=== PATIENT | female | born 1970 | race Hispanic/Latino ===

== ENCOUNTER → 2024-02-25 06:25 | Outpatient (REF) | payer BC, SELFPAY ==
[2024-02-25 10:13] LABS: % Eosinophils 1.8 % (0-6); % Immature Granulocytes 0.2 % (0-0.5); % Lymphocytes 29.6 % (20.5-51.1); % Monocytes 7.5 % (1.7-9.3); % Neutrophils 59.9 % (42.2-75.2); Absolute Basophils 0.1 10^3/uL (0-0.2); Absolute Eosinophils 0.1 10^3/uL (0-0.7); Absolute Lymphocytes 1.8 10^3/uL (1.2-3.4); Absolute Monocytes 0.5 10^3/uL (0.1-0.6); Absolute Neutrophils 3.7 10^3/uL (1.4-6.5); Hematocrit 42.6 % (37.0-47.0); Hemoglobin 14.4 g/dL (12.0-16.0); Mean Corp Hgb Conc. 33.8 g/dL (33.0-37.0); Mean Corpuscular Hgb 29.8 pg (27.0-31.0); Mean Corpuscular Volume 88.2 fL (81.0-99.0); Mean Platelet Volume 11.3 fL (7.4-10.4); Nucleated Red Blood Cells % 0 %; Platelet Count 193 10^3/uL (130-400); Red Blood Cell Count 4.83 10^6/uL (4.20-5.40); Red Cell Dist. Width 12.1 % (11.5-14.5); White Blood Cell Count 6.2 10^3/uL (4.8-10.8)
[2024-02-25 10:29] LABS: ALT (SGPT) 13 U/L (0-35); AST (SGOT) 21 U/L (14-36); Albumin 4.4 g/dl (3.5-5.0); Alkaline Phosphatase 63 U/L (38-126); Blood Urea Nitrogen 19 mg/dl (7-17); Carbon Dioxide 25 mmol/L (22-30); Chloride 104 mmol/L (98-107); Glucose 107 mg/dl (70-99); HDL Cholesterol 42 mg/dl; LDL Cholesterol, Calculated 114 mg/dl; Potassium 4.5 mmol/L (3.5-5.1); Sodium 139 mmol/L (135-145); Total Bilirubin 0.6 mg/dl (0.2-1.3); Total Cholesterol 175 mg/dl (50-199); Total Protein 7.5 g/dl (6.3-8.2); Triglyceride 98 mg/dl (10-149); Very Low Density Lipoprotein 19 mg/dl (0-30); eGFR 53.79
[2024-02-25 10:53] LABS: TSH Reflex To Free T4 0.71 uIU/ml (0.47-4.68)
[2024-02-26 10:17] LABS: Intact PTH 57.1 pg/ml (13.6-85.8)
== END ==
LOC: HWWDC 06:25
PROVIDERS: ATTENDING PHYSICIAN Nurse Practitioner
DX: Z12.31 Encounter for screening mammogram for malignant neoplasm of breast (principal)
CPT/HCPCS: 36415; 77063; 77067; 80053; 80061; 83970; 84443; 85025

== ENCOUNTER → 2024-06-01 08:36 | Outpatient (REF) | payer BC, SELFPAY | LOC: HWRAD 08:36 | PROVIDERS: ATTENDING PHYSICIAN Nurse Practitioner Adult Health; FAMILY PHYSICIAN Nurse Practitioner | DX: R10.2 Pelvic and perineal pain (principal) | CPT/HCPCS: 76830; 76856 ==

== ENCOUNTER → 2024-06-23 10:42 | Outpatient (REF) | payer BC, SELFPAY | LOC: WDC 10:42 | PROVIDERS: ATTENDING PHYSICIAN Nurse Practitioner | DX: R92.333 Mammographic heterogeneous density, bilateral breasts (principal) | CPT/HCPCS: 76641 ==

== ENCOUNTER → 2024-06-23 14:37 | Outpatient (REF) | payer BC, SELFPAY | LOC: CPAP 14:37 | PROVIDERS: ATTENDING PHYSICIAN Nurse Practitioner Adult Health | DX: N76.0 Acute vaginitis (principal) | CPT/HCPCS: 87070; 87102 ==

== ENCOUNTER → 2024-08-09 09:50 | Outpatient (REF) | payer BC, SELFPAY | LOC: PAVMRI 09:50 | PROVIDERS: ATTENDING PHYSICIAN Orthopaedic Surgery; FAMILY PHYSICIAN Nurse Practitioner | DX: M54.12 Radiculopathy, cervical region (principal) | CPT/HCPCS: 72141 ==

== ENCOUNTER 2024-09-13 06:28 | Day surgery (SDC) | payer BC, SELFPAY | END 2024-09-13 14:34 | disposition home or self-care (01) | LOC: GI 06:28 | PROVIDERS: ATTENDING PHYSICIAN Internal Medicine | DX: Z12.11 Encounter for screening for malignant neoplasm of colon (principal); K64.8 Other hemorrhoids; K62.1 Rectal polyp | CPT/HCPCS: 45385; 45380; 88305 ==

== ENCOUNTER 2024-11-20 10:02 | Emergency (ER) | payer BC, SELFPAY ==
[2024-11-20 10:10] VITALS: BP 145/90
--- NOTE | 2024-11-20 10:55 | ED.GENMED ---
History of Present Illness
<Douglas Lozano PA-C - Last Filed: 11/20/24 13:41>
General
Chief Complaint: Abdominal Pain
Source: patient
Time Seen by Provider: 11/20/24 10:48
History of Present Illness
History of Present Illness:
54-year-old female with past medical history of hypertension and GERD presenting to the emergency department at request of her primary care provider for evaluation of left lower quadrant abdominal pain x 4 days described to be a somewhat constant
pain, aching, nonradiating, worse yesterday however patient reports that after her primary care provider palpated her abdomen she is having increased pain to the left lower quadrant. Patient states that her last dose of medication was around 2 PM
yesterday, has not taken anything today. Patient denies any fevers, chills, rigors, nausea, vomiting, bowel changes, urinary symptoms or any other concerns.
Past History
<Douglas Lozano PA-C - Last Filed: 11/20/24 13:41>
Past History
ED Past Medical History: GERD, HTN and Other (RUIZ)
ED Past Surgical History: Gynecological (tubal ligation)
Social History
Tobacco: Non-smoker
Alcohol: Occasional
Drug: None
Personal:
Living: with family
Employment: Employed
Family History
Family History: Hypertension and CAD
Review of Systems
<Douglas Lozano PA-C - Last Filed: 11/20/24 13:41>
Review of Systems
All Other Systems: ROS reviewed and negative except as documented in HPI and ROS
Phy Exam
<Douglas Lozano PA-C - Last Filed: 11/20/24 13:41>
Physical Exam
Physical Exam:
GENERAL: Alert , in no apparent distress, but does appear very uncomfortable
EYE: clear conjunctiva b/l
HEAD: NCAT
ENT: o/p clr, mmm.
CARDIAC: Regular rate and rhythm .
LUNGS: Clear breath sounds bilaterally, no acute respiratory distress, no wheezes/rales/rhonchi
ABDOMEN: Soft, left lower quadrant tenderness but no rebound or guarding, no cvat, negative Goodson sign, no tenderness at McBurney's point
NEUROLOGICAL: Alert and oriented
SKIN: Warm and dry, skin intact.
MUSCULOSKELETAL: well perfused.
PSYCH: Normal and appropriate interaction.
Scores
<Douglas Lozano PA-C - Last Filed: 11/20/24 13:41>
Heart Failure Risk
Heart Failure Risk Score: Not Applicable
Heart Score for Chest Pain Patients
STEMI patient?: Not applicable
Withdrawal Assessment of Alcohol
Withdrawal Assessment Completed?: Not applicable
Course
<Douglas Lozano PA-C - Last Filed: 11/20/24 13:41>
Orders/Labs/Results
Orders:
Orders
11/20/24 10:53
Ketorolac [Toradol] 30 mg IV NOW STA
11/20/24 10:54
CT Abd/pelvis W Iv Cont Urgent
Comment:
Reason For Exam: LLQ/left flank abd pain
11/20/24 11:03
Test Result ONCE
11/20/24 11:06
Complete Blood Count/With Diff Urgent
Comprehensive Metabolic Panel Urgent
HCG, Serum Qualitative Screen Urgent
Lipase Urgent
Urinalysis Reflex To Culture Urgent
Date Specimen was Collected: 11/20/24
Time Specimen was Collected: 11:00
Urine Microscopic Reflex Cult Urgent
Urine Culture Urgent
CHERELLE Source: U
Specimen Description:
Date Specimen was Collected: 11/20/24
Time Specimen was Collected: 11:00
11/20/24 13:38
Lorazepam [Ativan] 1 mg IV NOW STA
Abnormal Lab Results
11/20/24
11:06
MPV 10.6 H fL
(7.4-10.4)
BUN 19 H mg/dl
(7-17)
Creatinine 1.2 H mg/dL
(0.6-1.0)
Lipase 474 H U/L
(23-300)
Leukocyte Esterase Rfl 2+ A
(Negative)
Urine Bacteria (Reflex) Moderate A
(Negative)
11/20/24 11:06
11/20/24 11:06
Vital Signs
Initial and Last Documented VS:
Initial Vital Signs
Temp Pulse Resp Pulse Ox
98.8 F 75 18 99
11/20/24 10:08 11/20/24 10:08 11/20/24 10:08 11/20/24 10:08
Last Documented Vital Signs
Temp Pulse Resp BP Pulse Ox
98.8 F 82 18 133/93 99
11/20/24 10:08 11/20/24 15:23 11/20/24 15:23 11/20/24 15:23 11/20/24 15:23
<Cherie Montez PA-C - Last Filed: 11/20/24 17:07>
Orders/Labs/Results
Orders:
Orders
11/20/24 10:53
Ketorolac [Toradol] 30 mg IV NOW STA
11/20/24 10:54
CT Abd/pelvis W Iv Cont Urgent
Comment:
Reason For Exam: LLQ/left flank abd pain
11/20/24 11:03
Test Result ONCE
11/20/24 11:06
Complete Blood Count/With Diff Urgent
Comprehensive Metabolic Panel Urgent
HCG, Serum Qualitative Screen Urgent
Lipase Urgent
Urinalysis Reflex To Culture Urgent
Date Specimen was Collected: 11/20/24
Time Specimen was Collected: 11:00
Urine Microscopic Reflex Cult Urgent
Urine Culture Urgent
CHERELLE Source: U
Specimen Description:
Date Specimen was Collected: 11/20/24
Time Specimen was Collected: 11:00
11/20/24 13:38
Lorazepam [Ativan] 1 mg IV NOW STA
Abnormal Lab Results
11/20/24
11:06
MPV 10.6 H fL
(7.4-10.4)
BUN 19 H mg/dl
(7-17)
Creatinine 1.2 H mg/dL
(0.6-1.0)
Lipase 474 H U/L
(23-300)
Leukocyte Esterase Rfl 2+ A
(Negative)
Urine Bacteria (Reflex) Moderate A
(Negative)
11/20/24 11:06
11/20/24 11:06
Vital Signs
Initial and Last Documented VS:
Initial Vital Signs
Temp Pulse Resp Pulse Ox
98.8 F 75 18 99
11/20/24 10:08 11/20/24 10:08 11/20/24 10:08 11/20/24 10:08
Last Documented Vital Signs
Temp Pulse Resp BP Pulse Ox
98.8 F 82 18 133/93 99
11/20/24 10:08 11/20/24 15:23 11/20/24 15:23 11/20/24 15:23 11/20/24 15:23
<Douglas Lozano PA-C - Last Filed: 11/20/24 13:41>
MDM/Problems Addressed
Differential Diagnosis Includes:
Diverticulitis, renal/ureteral colic, urinary tract infection, ovarian cyst, pyelonephritis
MDM/Problems Addressed:
54-year-old female presenting to the emergency department at request of primary care provider with concerns for possible diverticulitis. Patient with left lower quadrant abdominal pain for the last 4 days. Patient is afebrile, hemodynamically
stable. She does appear quite uncomfortable. We will treat with 30 mg of Toradol for pain. Patient advised to remain NPO. Workup pending
<Douglas Lozano PA-C - Last Filed: 11/20/24 13:41>
*Pulse Oximetry
Patient hypoxic: no
<Cherie Montez PA-C - Last Filed: 11/20/24 17:07>
*Critical Care Note
Total Time (30-74mins, 75-104mins- exclusive of procedures): Not Applicable
<Douglas Lozano PA-C - Last Filed: 11/20/24 13:41>
Comment
Comment:
1:30 PM: While obtaining CT scan patient had a panic attack and was unable to complete study. Patient brought back to the room. Went over multiple different ways that we could get further imaging or treat patient including starting oral
antibiotics prophylactically for suspected diverticulitis however patient ultimately states she still wants to go through with the CT scan. I will treat the patient with Ativan prior to going back to CT. I notified CT techs and they will take
patient back to CAT scan when ready.
<Cherie Montez PA-C - Last Filed: 11/20/24 17:07>
Update Note
Update Note:
Update 3:58 PM: Received patient in signout pending CT scan. CT report shows uncomplicated epiploic appendagitis of proximal sigmoid colon. Discussed CT report at length at bedside with patient. patient remained stable and afebrile. Pain
significantly improved after IV Toradol. She is afebrile with no leukocytosis. Antibiotics not indicated at this time. Ultimately�feel patient stable for discharge home with primary care follow-up. Advised NSAIDs, p.o. hydration. Strict return
precautions discussed. Patient will have lipase repeated with PCP in about a week. Patient also made aware of incidental ovarian cyst noted for nonemergent pelvic ultrasound outpatient. Patient comfortable with plan.
ED Attending Note
<Douglas Lozano PA-C - Last Filed: 11/20/24 13:41>
-
Portions of this chart may have been created with voice recognition software.� Occasional wrong word or��sound alike� substitutions may have occurred due to the inherent limitations of voice recognition software.
Discharge Plan
Departure
Patient Disposition: Home (Routine Discharge)
Date of Disposition: 11/20/24
Time of Disposition: 16:25
Patient with high blood pressure during this ER visit?: Yes
Condition: Good
Covid-19: Not Applicable
Discharge Problem:
Epiploic appendagitis
Instructions: Abdominal Pain, BLOOD PRESSURE
Prescriptions:
No Action
Centrum Silver Women 8 mg iron-400 mcg-300 mcg Tablet
1 tab PO DAILY
ibuprofen 600 mg Tablet
600 mg PO Q4HPRN PRN (Reason: mild cramps) Qty: 30 0RF
spironolactone 25 mg Tablet
25 mg PO DAILY
chlorthalidone 25 MG tablet
25 mg PO DAILY
diazepam [Valium] 5 mg tablet
5 mg PO Q8H PRN (Reason: muscle spasm) Qty: 14 0RF
Referrals:
Mohini Rizzo CRNP [Family Provider] - Follow up in 5-7 days
Activity Restrictions/Additional Instructions:
Return to the emergency department with any fevers, chills, worsening/persistent abdominal pain, intractable nausea/vomiting, or any other concerns
-As discussed�your CT scan did show epiploic appendagitis. You should take Motrin and/or Tylenol as needed for pain. I recommend a bland diet over the next few and advance as tolerated. Get plenty of rest. Stay well-hydrated.
-As discussed�your lipase level was elevated while in the emergency department. You should have this rechecked with your primary care doctor in about a week to ensure trending down.
-In addition�there was a cyst noted near your right ovary. This may require further imaging with an ultrasound which you should follow-up with your [employer]
Monitor your symptoms closely and return to the emergency department with any acute worsening/new symptoms or any other concerns
Interventions
Interventions:
*Risk Screen - Suicide Last Done: 11/20/24 11:13
*General Assessment Last Done: 11/20/24 11:13
*ED- Fall Risk Assessment Last Done: 11/20/24 11:13
*ED COVID-19 Vaccine History Last Done: 11/20/24 11:13
BW-Fhpbxz-Tnennihrpq Assessment Last Done: 11/20/24 11:11
Discharge Date and Time
Print Language: GREENLANDIC
[2024-11-20] MEDS: TORADOL 30 MG IV (11:07)
[2024-11-20 11:26] LABS: % Basophils 0.9 % (0-2); % Eosinophils 1.3 % (0-6); % Immature Granulocytes 0.1 % (0-0.5); % Lymphocytes 20.7 % (20.5-51.1); % Monocytes 7.7 % (1.7-9.3); % Neutrophils 69.3 % (42.2-75.2); Absolute Basophils 0.1 10^3/uL (0-0.2); Absolute Eosinophils 0.1 10^3/uL (0-0.7); Absolute Lymphocytes 1.4 10^3/uL (1.2-3.4); Absolute Monocytes 0.5 10^3/uL (0.1-0.6); Absolute Neutrophils 4.7 10^3/uL (1.4-6.5); Hematocrit 43.5 % (37.0-47.0); Hemoglobin 15.1 g/dL (12.0-16.0); Mean Corp Hgb Conc. 34.7 g/dL (33.0-37.0); Mean Corpuscular Hgb 30.1 pg (27.0-31.0); Mean Corpuscular Volume 86.8 fL (81.0-99.0); Mean Platelet Volume 10.6 fL (7.4-10.4); Nucleated Red Blood Cells % 0 %; Platelet Count 188 10^3/uL (130-400); Red Blood Cell Count 5.01 10^6/uL (4.20-5.40); Red Cell Dist. Width 12.4 % (11.5-14.5); White Blood Cell Count 6.7 10^3/uL (4.8-10.8)
[2024-11-20 11:37] LABS: Urine Albumin Negative (Neg - Trace); Urine Bilirubin Negative (Negative); Urine Character Clear (Clear); Urine Color Yellow; Urine Glucose Negative (Negative); Urine Ketone Negative (Negative); Urine Leukocyte 2+ (Negative); Urine Nitrite Negative (Negative); Urine Occult Blood Negative (Negative); Urine Urobilinogen Negative (Neg - 1+)
[2024-11-20 11:44] LABS: HCG, Serum Qualitative Screen Negative
[2024-11-20 11:48] LABS: ALT (SGPT) 14 U/L (0-35); AST (SGOT) 19 U/L (14-36); Albumin 4.3 g/dl (3.5-5.0); Alkaline Phosphatase 78 U/L (38-126); Blood Urea Nitrogen 19 mg/dl (7-17); Calcium 9.9 mg/dl (8.4-10.2); Carbon Dioxide 29 mmol/L (22-30); Chloride 101 mmol/L (98-107); Glucose 97 mg/dl (70-99); Lipase 474 U/L (23-300); Potassium 4.3 mmol/L (3.5-5.1); Sodium 137 mmol/L (135-145); Total Bilirubin 0.5 mg/dl (0.2-1.3); Total Protein 7.5 g/dl (6.3-8.2); eGFR 53.79
[2024-11-20 12:09] LABS: Urine Amorphous Seen; Urine Squamous Cell >30 /LPF (Few)
[2024-11-20 12:10] LABS: Urine Red Blood Cell 0-2 /HPF (0-2)
[2024-11-20 12:12] LABS: Urine Bacteria Moderate (Negative)
[2024-11-20 13:15] VITALS: BP 121/82
[2024-11-20] MEDS: ATIVAN 1 MG IV (13:43)
[2024-11-20 15:23] VITALS: BP 133/93
[2024-11-20 16:45] VITALS: BP 129/96
== END 2024-11-20 16:50 | disposition home or self-care (01) ==
LOC: EMR 10:02
PROVIDERS: Physician Assistant Medical; EMERGENCY PHYSICIAN Emergency Medicine; FAMILY PHYSICIAN Nurse Practitioner
DX: K63.89 Other specified diseases of intestine (principal); I10 Essential (primary) hypertension; K21.9 Gastro-esophageal reflux disease without esophagitis
CPT/HCPCS: 99285; 96374; 96375; 74177; 80053; 81003; 81015; 83690; 84703; 85025; 87086; Q9967

== ENCOUNTER → 2024-12-19 07:52 | Outpatient (REF) | payer BC, SELFPAY | LOC: WDC 07:52 | DX: R92.8 Other abnormal and inconclusive findings on diagnostic imaging of breast (principal) | CPT/HCPCS: 76642 ==

== ENCOUNTER → 2025-01-24 06:13 | Outpatient (REF) | payer BC, SELFPAY ==
[2025-01-24 10:37] LABS: Amylase 72 U/L (30-110); Blood Urea Nitrogen 15 mg/dl (7-17); Calcium 9.5 mg/dl (8.4-10.2); Carbon Dioxide 27 mmol/L (22-30); Chloride 107 mmol/L (98-107); Glucose 111 mg/dl (70-99); Lipase 207 U/L (23-300); Potassium 4.6 mmol/L (3.5-5.1); Sodium 141 mmol/L (135-145); eGFR 53.46
[2025-01-24 11:19] LABS: Microalbumin, Random Urine <0.6 mg/dl (0.6-1.7)
== END ==
LOC: HWLAB 06:13
PROVIDERS: ATTENDING PHYSICIAN Internal Medicine
DX: N18.31 Chronic kidney disease, stage 3a (principal); R74.8 Abnormal levels of other serum enzymes
CPT/HCPCS: 36415; 80048; 82043; 82150; 82570; 83690

== ENCOUNTER → 2025-02-27 07:47 | Outpatient (REF) | payer BC, SELFPAY | LOC: HWWDC 07:47 | DX: Z12.31 Encounter for screening mammogram for malignant neoplasm of breast (principal) | CPT/HCPCS: 77063; 77067 ==

== ENCOUNTER → 2025-05-24 12:43 | Outpatient (REF) | payer BC, SELFPAY | LOC: HWRAD 12:43 | PROVIDERS: ATTENDING PHYSICIAN Nurse Practitioner Adult Health | DX: N83.209 Unspecified ovarian cyst, unspecified side (principal); R10.2 Pelvic and perineal pain | CPT/HCPCS: 76830; 76856 ==

== ENCOUNTER → 2025-06-19 07:50 | Outpatient (REF) | payer BC, SELFPAY | LOC: WDC 07:50 | DX: R92.333 Mammographic heterogeneous density, bilateral breasts (principal) | CPT/HCPCS: 76641 ==